=== PATIENT | female | born 1970 | race Caucasian/White ===

== ENCOUNTER 2019-07-13 06:05 | Day surgery (SDC) | payer OTHER ==
[~2019-07-13] VITALS: Ht 162.6 cm; Wt 72.6 kg
[~2019-07-13 06:05] MED LIST: BUPIVACAINE-MPF/EPI 0.25% 30 ML VIAL INJ ONE; LIDOCAINE 1% 500 MG/50 ML VIAL ONE
[2019-07-13] MEDS ORDERED: fentaNYL 0.05 MG/ML VIAL ONE (07:39)
[2019-07-13] MEDS ORDERED: LIDOCAINE 2% 100 MG/5 ML UJET TP ONE (07:39)
[2019-07-13] MEDS ORDERED: fentaNYL 0.05 MG/ML VIAL IVP ONE (08:35)
== END 2019-07-13 08:46 | disposition home or self-care (01) ==
LOC: MDS 06:05 → MMU 06:08 → MDS 08:46
PROVIDERS: ATTEND Internal Medicine Gastroenterology
DX: Z12.11 Encounter for screening for malignant neoplasm of colon (principal); D12.8 Benign neoplasm of rectum
CPT/HCPCS: 45380; J2001; J3010; J3490